=== PATIENT | male | born 1985 | race Caucasian/White ===

== ENCOUNTER 2020-01-25 08:49 | Day surgery (SDC) | payer BC ==
[~2020-01-25 08:49] MED LIST: Bupivacaine 0.5% 10 ML SDV ONE; Lactated Ringers 1,000 ML IV SCH; Lidocaine 2% 5 ML SDV ONE; Midazolam 1 MG/ML 2 ML SDV ONE; Propofol 200 MG/20 ML SDV ONE; Sodium Chloride 0.9% 10 ML SDV IV PRN; Sodium Chloride 0.9% 10 ML Syringe FLUSH PRN; Sodium Chloride 0.9% 2.5 ML Syringe FLUSH PRN; ceFAZolin 2 GM in Premix Bag 1 BAG IV ONE; fentaNYL 100 MCG/2 ML SDV ONE
[2020-01-25] MEDS ORDERED: 50% Dextrose in Water 50 ML Syringe IVPUSH PRN (08:52)
[2020-01-25] MEDS ORDERED: fentaNYL 100 MCG/2 ML SDV IVPUSH PRN (08:52)
[2020-01-25] MEDS ORDERED: EPINEPHrine 1:10,000 1 MG/10 ML Syringe IVPUSH PRN (08:52)
[2020-01-25] MEDS ORDERED: Naloxone 0.4 MG/ML Syringe IVPUSH PRN (08:52)
[2020-01-25] MEDS ORDERED: Albuterol 0.083% 2.5 MG/3 ML Neb Soln NEB PRN (08:52)
[2020-01-25] MEDS ORDERED: Atropine 0.1 MG/ML 10 ML Syringe IVPUSH PRN ×2 (08:52)
--- NOTE | 2020-01-25 09:29 | PCM.PREANE ---
Preanesthetic Assessment - Anesthesia/Transfusion/Family Hx Anesthesia History: No Prior Anesthesia Family History of Anesthesia Reaction: No Transfusion History: No Prior Transfusion(s) - Review of Systems General: No Symptoms Pulmonary: No Symptoms Cardiovascular: No Symptoms Gastrointestinal: No Symptoms Neurological: No Symptoms Other: Reports: None - Physical Assessment NPO Status Date: 01/24/20 Vital Signs: Last Vital Signs Temp 98.1 F 01/25/20 09:19 Pulse 62 01/25/20 09:19 Resp 16 01/25/20 09:19 BP 103/64 01/25/20 09:19 Pulse Ox 97 01/25/20 09:19 Height: 5 ft 7 in Weight: 79.379 kg ASA Class: 1 Mental Status: Alert & Oriented x3 Airway Class: Mallampati = 2 Dentition: Reports: Normal Dentition ROM/Head Extension: Full Lungs: Clear to Auscultation, Normal Respiratory Effort Cardiovascular: Regular Rate, Regular Rhythm - Allergies Allergies/Adverse Reactions: Allergies Allergy/AdvReac Type Severity Reaction Status Date / Time No Known Allergies Allergy Verified 01/25/20 09:17 - Blood Blood Available: No - Anesthesia Plan Pre-Op Medication Ordered: None - Acknowledgements Anesthesia Type Planned: MAC Pt an Appropriate Candidate for the Planned Anesthesia: Yes Alternatives and Risks of Anesthesia Discussed w Pt/Guardian: Yes Pt/Guardian Understands and Agrees with Anesthesia Plan: Yes PreAnesthesia Questionnaire HEENT History: Reports: Other (See Below) Other HEENT History: wears glasses - Past Surgical History Head Surgeries/Procedures: Reports: None - SUBSTANCE USE Smoking Status *Q: Former Smoker Tobacco Use Within Last Twelve Months: Cigarettes Recreational Drug Use History: Yes Recreational Drug Type: Reports: Marijuana/Hashish - HOME MEDS Home Medications: Home Meds . [No Known Home Meds] 01/19/20 [History] - CURRENT (IN HOUSE) MEDS Current Meds: Current Medications Albuterol (Proventil Neb Soln) 2.5 mg NEB ONETIME PRN PRN Reason: Wheezing Atropine Sulfate (Atropine 0.1 Mg/Ml) 0.5 mg IVPUSH ASDIRECTED PRN PRN Reason: Hypo-perfusion Atropine Sulfate (Atropine 0.1 Mg/Ml) 1 mg IVPUSH ASDIRECTED PRN PRN Reason: Hypo-Perfusion Dextrose/Water (Dextrose 50% In Water) 50 ml IVPUSH ASDIRECTED PRN PRN Reason: Hypoglycemia Epinephrine HCl (Epinephrine 1:10,000) 1 mg IVPUSH ASDIRECTED PRN PRN Reason: ACLS Guidelines Fentanyl (Sublimaze) 50 - 100 mcg IVPUSH Q5M PRN PRN Reason: Pain Lactated Ringer's (Ringers, Lactated) 1,000 mls @ 125 mls/hr IV ASDIRECTED ALEXSANDRA Last Admin: 01/25/20 09:17 Dose: 125 mls/hr Naloxone HCl (Narcan) 0.1 mg IVPUSH ASDIRECTED PRN PRN Reason: Respiratory Depression Sodium Chloride (Saline Flush) 10 ml FLUSH ASDIRECTED PRN PRN Reason: Keep Vein Open Sodium Chloride (Saline Flush) 2.5 ml FLUSH ASDIRECTED PRN PRN Reason: Keep Vein Open Sodium Chloride (Normal Saline) 10 ml IV ASDIRECTED PRN PRN Reason: IV Use Discontinued Medications Bupivacaine HCl (Sensorcaine-Mpf 0.5%) Confirm Administered Dose 10 ml .ROUTE .STK-MED ONE Stop: 01/25/20 07:12 Fentanyl (Sublimaze) Confirm Administered Dose 100 mcg .ROUTE .STK-MED ONE Stop: 01/25/20 07:04 Cefazolin Sodium/Dextrose 2 gm (/ Premix) 50 mls @ 100 mls/hr IV ONETIME ONE Stop: 01/24/20 14:49 Lidocaine (Xylocaine-Mpf 2%) Confirm Administered Dose 5 ml .ROUTE .STK-MED ONE Stop: 01/25/20 07:03 Midazolam HCl (Versed 1 Mg/Ml) Confirm Administered Dose 2 mg .ROUTE .STK-MED ONE Stop: 01/25/20 07:04 Propofol (Diprivan 20 Ml) Confirm Administered Dose 400 mg .ROUTE .STK-MED ONE Stop: 01/25/20 07:04
[2020-01-25] MEDS ORDERED: ceFAZolin 1 GM Vial ONE (11:26)
[2020-01-25] MEDS ORDERED: Sodium Chloride 0.9% 20 ML ONE (11:26)
[2020-01-25] MEDS ORDERED: ePHEDrine 50 MG/ML SDV ONE (11:44)
[2020-01-25] MEDS ORDERED: Octyl 2-Cyanoacrylate 1 Tube ONE (11:46)
--- NOTE | 2020-01-25 11:58 | PCM.OPNOTE ---
- General Post-Op/Procedure Note Date of Surgery/Procedure: 01/25/20 Operative Procedure(s): Excision upper back sebceous cyst Findings: 3 x 2 x 1 cm sebaceous cyst upper back Pre Op Diagnosis: Sebaceous cyst Post-Op Diagnosis: same Anesthesia Technique: Local, MAC Primary Surgeon: Nayeli Lara Fluid Replacement, Intraop: 800 EBL in mLs: 5 Condition: Good
--- NOTE | 2020-01-25 12:16 | PCM.POSTAN ---
POST ANESTHESIA ASSESSMENT - MENTAL STATUS Mental Status: Alert, Oriented - VITAL SIGNS Vital Signs: Last Vital Signs Temp 36.6 C 01/25/20 11:58 Pulse 90 01/25/20 12:13 Resp 10 L 01/25/20 12:13 BP 100/56 L 01/25/20 12:13 Pulse Ox 96 01/25/20 12:13 - RESPIRATORY Respiratory Status: Respiratory Rate WNL, Airway Patent, O2 Saturation Stable - CARDIOVASCULAR CV Status: Pulse Rate WNL, Blood Pressure Stable - GASTROINTESTINAL GI Status: No Symptoms - PAIN Pain Score: 0 - POST OP HYDRATION Hydration Status: Adequate & Stable
--- NOTE | 2020-01-25 12:45 | PCM48HPAN ---
Post Anesthesia Note - EVALUATION WITHIN 48HRS OF ANESTHETIC Vital Signs in Normal Range: Yes Patient Participated in Evaluation: Yes Respiratory Function Stable: Yes Airway Patent: Yes Cardiovascular Function Stable: Yes Hydration Status Stable: Yes Pain Control Satisfactory: Yes Nausea and Vomiting Control Satisfactory: Yes Mental Status Recovered: Yes Vital Signs: Last Vital Signs Temp 97.9 F 01/25/20 11:58 Pulse 90 01/25/20 12:13 Resp 10 L 01/25/20 12:13 BP 100/56 L 01/25/20 12:13 Pulse Ox 96 01/25/20 12:13
--- NOTE | 2020-01-26 15:12 | OR ---
SURGEON: NAYELI LARA MD DATE OF PROCEDURE: 01/25/2020 PREOPERATIVE DIAGNOSIS: Upper back mass. POSTOPERATIVE DIAGNOSIS: Upper back sebaceous cyst. PROCEDURE PERFORMED: Excision, upper back mass. PRIMARY SURGEON: Nayeli Lara MD ANESTHESIA: MAC, local. FLUIDS: 800 mL of crystalloid. ESTIMATED BLOOD LOSS: 5 mL. FINDINGS: 3 x 2 x 1 cm sebaceous cyst, upper back. COMPLICATIONS: None. INDICATIONS: The patient is a 34-year-old male who presented to clinic with a symptomatic left upper back mass. On examination in clinic, this appeared to be a sebaceous cyst. However, given its size and its location, the decision was made to take him to the operating room to perform this under monitored anesthesia care. The patient and I discussed the procedure, expected perioperative course, and risks including bleeding or infection. He verbalized understanding and wishes to proceed. PROCEDURE IN DETAIL: The patient was brought into the OR and placed on the OR table in a right lateral decubitus position. A time-out was completed verifying the patient's name, age, date of , allergies, and procedure to be performed. Monitored anesthesia care was induced and continuous oxygen was provided via nasal cannula throughout the procedure. The upper back was prepped and draped in usual standard fashion. After adequate sedation was achieved, I anesthetized the area around the mass with 0.5% Marcaine plain. A 15 blade was used to make an incision over the top of this mass. I then used electrocautery to dissect down to the level of subcutaneous fat. I immediately encountered a large cyst wall. Using sharp dissection with the Metzenbaum scissors as well as electrocautery, I dissected this mass from its surrounding tissues. It appeared to be a sebaceous cyst. Once I had freed it up from all the surrounding tissues, I then dissected it off the underlying tissues and removed it from the field. It was placed on the back table and measured. It measured 3 x 2 x 1 cm in size. It was sent to pathology, labeled as back sebaceous cyst. There were no margins associated with this case. I then irrigated the wound with normal saline and hemostasis was achieved with electrocautery. I then closed the wound with interrupted layers of 3-0 Vicryl suture within the subcutaneous fat layer. The skin was closed with a running 4-0 Monocryl stitch. Dermabond and a sterile dressing were applied. The patient tolerated the procedure well and was transferred to the PACU in stable condition. All counts were complete and correct at the end of the case. RAPHAEL PABLO /[id number]
== END 2020-01-25 12:45 | disposition home or self-care (01) ==
LOC: MW.SDS 08:49
PROVIDERS: ATTEND Surgery
DX: L72.3 Sebaceous cyst (principal); R22.2 Localized swelling, mass and lump, trunk; Z87.891 Personal history of nicotine dependence
CPT/HCPCS: 11403; 12032; 88304; A9270; J0690; J2001; J2250; J2704; J3010; J3490; J7120; 00300